=== PATIENT | male | born 1990 | race African-American/Black ===

== ENCOUNTER 2023-05-27 10:32 | Emergency (ER) | payer MEDICAID ==
[~2023-05-27] VITALS: Ht 193 cm; Wt 98.6 kg
[2023-05-27 10:45] VITALS: TEMP 99.3
[2023-05-27 13:36] VITALS: BP 108/59; PULSE 110; RESP 16
[2023-05-27] MEDS ORDERED: PENI500T2 PO (14:31)
[2023-05-27] MEDS ORDERED: ACETAMINOPHEN 500 MG TABLET PO ONE (14:45)
[2023-05-27] MEDS ORDERED: DEXAMETHASONE SOD PHOS 4 MG/ML 5 ML VIAL IM ONE (14:45)
== END 2023-05-27 14:54 | disposition home or self-care (01) ==
LOC: EMS 10:36
DX: J03.01 Acute recurrent streptococcal tonsillitis (principal)
CPT/HCPCS: 99283; 87430; 96372; J1100